=== PATIENT | female | born 1955 | race Caucasian/White ===

== ENCOUNTER → 2016-11-30 | Outpatient (CLI) | payer BC ==
--- NOTE | 2016-11-30 11:50 | WOMENS IMAGING REPORT ---
EXAM DESCRIPTION: BILAT SCREENING MAMMO W/CAD COMPLETED DATE/TIME: 11/30/2016 10:24 am REASON FOR STUDY: ROUTINE SCREENING; Z12.31 Z12.31 ENCNTR SCREEN MAMMOGRAM FOR MALIGNANT NEOPLASM O F CHLOE COMPARISON: Multiple since 2008 TECHNIQUE: Standard craniocaudal and mediolateral oblique views of each breast recorded using [employer] acquisition. LIMITATIONS: None. FINDINGS: No masses, calcifications or architectural distortion. No areas of suspicion. Read with the assistance of CAD. .[facility] - R2 Cenova Version 1.3 .[facility] - R2 Cenova Version 1.3 .[facility] - R2 Cenova Version 2.4 .[facility] - R2 Cenova Version 2.4 .[facility] - R2 [employer] Version 9.2 IMPRESSION: NORMAL MAMMOGRAM. BIRADS 1. BREAST DENSITY: b. There are scattered areas of fibroglandular density. BIRAD: 1 NEGATIVE RECOMMENDATION: ROUTINE SCREENING COMMENT: The patient has been notified of the results by letter per SA requirements. Additional no tification policies are in place for contacting patient with suspicious or incomplete findings. Quality ID #[id number]: The [employer] recommends an annual screening mammogram for women aged 40 years or over. This facility utilizes a reminder system to ensure that all patients receive reminder letters, and/or direct phone calls for appointments. This includes reminders for routine scr eening mammograms, diagnostic mammograms, or other Breast Imaging Interventions when appropriate. Th is patient will be placed in the appropriate reminder system. The [employer] ([employer]) has developed recommendations for screening MRI of the breast s in certain patient populations, to be used in conjunction with mammography. Breast MRI surveillanc e may be appropriate for women with more than 20% lifetime risk of developing breast cancer as deter mined by genetic testing, significant family history of the disease, or history of mantle radiation f or Hodgkins Disease. ACR Practice Guidelines 2008. TECHNICAL DOCUMENTATION: FINDING NUMBER: (1) ASSESSMENT: (1) JOB ID: [id number] [employer]- All Rights Reserved
== END ==
LOC: WI 09:57
PROVIDERS: ATTEND Family Medicine
DX: Z12.31 Encounter for screening mammogram for malignant neoplasm of breast (principal)
CPT/HCPCS: 77067; G0202

== ENCOUNTER 2017-01-02 09:19 | Emergency (ER) | payer BC ==
[2017-01-02] MEDS ORDERED: FAMOTIDINE INJ/PF 20 MG/2 ML SDV IV ONE (10:02)
[2017-01-02] MEDS ORDERED: RACEPINEPHRINE HCL 2.25% NEB 0.5 ML AMPUL NEB ONE (10:02)
--- NOTE | 2017-01-02 10:04 | ER Document Report ---
ED General - General Information source: Patient TRAVEL OUTSIDE OF THE [place] IN LAST 30 DAYS: No - HPI Onset: Just prior to arrival Associated symptoms: Other - see above - General Chief Complaint: Breathing Difficulty Stated Complaint: NAUSEA AND VOMITTING Time Seen by Provider: 01/02/17 09:47 Notes: Patient is a 61 year old female who presents to the ED with complaints of tongue and throat swelling with onset LUBE MAN. Patient was given 50 total mg of Benadryl and 4mg of Zofran per EMS with some relief and improvement. Patient had dyspnea secondary to the swelling. Patient had her Lisinipril increased form 20 to 40 mg 3 weeks ago. (HUY AREVALO) - Related Data Allergies/Adverse Reactions: No Known Allergies Allergy (Verified 01/02/17 09:47) Past Medical History - General Information source: Patient - Social History Smoking Status: Unknown if Ever Smoked Frequency of alcohol use: None Family History: Reviewed & Not Pertinent - Past Medical History Cardiac Medical History: Reports: Hx Hypertension Endocrine Medical History: Reports: Hx Hyperthyroidism Surgical Hx: Negative Review of Systems - Review of Systems Constitutional: No symptoms reported EENT: See HPI, Throat swelling, Mouth swelling Cardiovascular: No symptoms reported Respiratory: See HPI, Short of breath Gastrointestinal: No symptoms reported Genitourinary: No symptoms reported Female Genitourinary: No symptoms reported Musculoskeletal: No symptoms reported Skin: No symptoms reported Hematologic/Lymphatic: No symptoms reported Neurological/Psychological: No symptoms reported Physical Exam - General General appearance: Alert - HEENT Head: Normocephalic, Atraumatic Eyes: Normal Extraocular movements intact: Yes Pupils: PERRL Pharynx: Erythema - on uvula, Uvular edema, Other - posterior pharynx is normal , tongue is normal - Respiratory Respiratory status: No respiratory distress Breath sounds: Normal - Cardiovascular Rhythm: Regular Heart sounds: Normal auscultation Murmur: No - Abdominal Inspection: Normal - Back Back: Normal - Extremities General upper extremity: Normal inspection, Normal ROM General lower extremity: Normal inspection, Normal ROM - Neurological Neuro grossly intact: Yes - Psychological Associated symptoms: Normal affect, Normal mood - Skin Skin Temperature: Warm Skin Moisture: Dry Skin Color: Normal - Vital signs Vitals: Resp Pulse Ox 14 100 01/02/17 09:23 01/02/17 09:23 Course - Consults Dr. Hallegado Time consulted: 10:25 Consulted provider: follow-up in office - Re-evaluation Re-evalutation: 01/02/17 11:35 The patient is uvula edema is almost gone at this time and she denies feeling any symptoms. Her rapid response to antihistamines suggests this is not angioedema caused by her lisinopril. As a precaution, and after discussion with her primary care provider, we decided to stop the lisinopril/hctz and start her on amlodipine and HCTZ. (BEVERLY COHEN) - Vital Signs Vital signs: Temp Pulse Resp BP Pulse Ox 18 129/80 H 96 01/02/17 10:45 01/02/17 10:45 01/02/17 10:45 - Consults Dr. Garrido Reason for consultation: 01/02/17 10:25 Discussed patient. We will stop Lisinopril and patient will be put on amlodipine 10 mg per day. (HUY AREVALO) Discharge - Discharge Clinical Impression: Uvular edema Allergic reaction Qualifiers: Encounter type: initial encounter Qualified Code(s): T78.40XA - Allergy, unspecified, initial encounter Condition: Stable Disposition: HOME, SELF-CARE Additional Instructions: Acute Allergic Reaction: Your symptoms are due to an allergic reaction. Allergy can cause hives, swelling of the hands, feet, and face, hoarseness, and difficulty swallowing or breathing. It may be due to exposure to medication, animal dander, foods, infection, or insect bites. Medication is a common cause, even when prior use of this same medication caused no problems. Acute treatment may include adrenalin and antihistamines. Usually, the specific allergic agent can't be identified unless repeated episodes occur. Home treatment includes the following: (1) Stop any suspicious medications. This will be discussed with you. (2) Oral antihistamines for the next four to five days. Example, diphenhydramine (Benadryl) every four hours. (3) You may also use cimetidine (Tagamet), ranitidine (Zantac), or famotidine (Pepcid) every four hours if diphenhydramine is not controlling itching and hives. (4) Avoid aspirin until the hives completely disappear. (5) Avoid hot bahs or showers until the hives are completely gone. Call the doctor if faintness, difficulty swallowing, tightness in the chest, or wheezing occurs. TAKE PEPCID 20mg EVERY 4 HOURS TODAY. ADD BENADRYL IF NEEDED FOR SWELLING. STOP TAKING THE LISINOPRIL-HCTZ. START THE AMLODIPINE AND HYDROCHLOROTHIAZIDE PRESCRIBED. FOLLOWUP WITH YOUR DOCTOR SCHEDULED. RETURN TO THE EMERGENCY ROOM IF ANY NEW OR WORSENING SYMPTOMS. Prescriptions: Amlodipine Besylate 10 mg PO DAILY #30 tab Hydrochlorothiazide 12.5 mg PO DAILY #30 capsule Referrals: SHANTELL GARRIDO MD [Primary Care Provider] - 01/07/17 10:30 am Scribe Attestation: 01/02/17 11:40 I personally performed the services described in the documentation, reviewed and edited the documentation which was dictated to the scribe in my presence, and it accurately records my words and actions. (BEVERLY COHEN) Scribe Documentation - Scribe Written by Tucker:: tucker Galarza, 01/02/2017, 1004 acting as scribe for :: María
[2017-01-02 12:10] VITALS: BP 132/78
== END 2017-01-02 12:22 | disposition home or self-care (01) ==
LOC: ER 09:19
DX: T78.40XA Allergy, unspecified, initial encounter (principal); R22.1 Localized swelling, mass and lump, neck; R06.02 Shortness of breath; R11.2 Nausea with vomiting, unspecified; Z79.899 Other long term (current) drug therapy; X58.XXXA Exposure to other specified factors, initial encounter
CPT/HCPCS: 94640; 99285; 96374; S0028; J3490